=== PATIENT | male | born 1995 | race Two or more races ===

== ENCOUNTER 2017-06-10 21:22 | Emergency (ER) | payer MEDICAID, OTHER ==
[~2017-06-10] VITALS: Ht 162.6 cm; Wt 53.1 kg
[~2017-06-10 21:22] MED LIST: DEPAKOTE250 MG PO; LANTUS SOL100 UNIT/1 SUBQ; NOVOLOG; SYMLIN600 MCG/1 SUBQ; ZOLOFT25 MG ORAL
--- NOTE | 2017-06-10 21:27 | Emergency Room Report ---
History of Present Illness General Chief Complaint: Abnormal Labs Source: Patient Present Illness HPI This is a 21-year-old male who has a history of insulin-dependent diabetes. He is taking NovoLog and Lantus every high-dose. He was doing well today until 56 hours ago when he fell week. Has polyuria and polydipsia. [place] tired. [place] very thirsty. Denies any fever or chills. Has a slight cold. Blood sugar was high at work and he called 911. EMS said blood sugar was over 500. Allergies: Coded Allergies: AMOXICILLIN (Verified Allergy, Unknown, 06/10/17) Patient History Past Medical History: see triage record, old chart reviewed Past Surgical History: other Pertinent Family History: none Social History: Denies: smoking Immunizations: other Reviewed Nursing Documentation: PMH: Agreed, PSxH: Agreed Nursing Documentation-PMH Past Medical History: No History, Except For Hx Diabetes: Yes - DM1 Review of Systems Eye: Denies: eye pain, blurred vision ENT: Denies: ear pain, nose congestion, throat swelling Respiratory: Denies: cough, shortness of breath Cardiovascular: Denies: chest pain, palpitations Gastrointestinal: Denies: abdominal pain, diarrhea, nausea, vomiting Musculoskeletal: Denies: back pain, joint pain Skin: Denies: rash Neurological: Denies: headache, numbness Endocrine: Reports: increased thirst, increased urine Hematologic/Lymphatic: Denies: easy bruising All Other Systems: negative except mentioned in HPI Physical Exam Vital Signs Date Time Temp Pulse Resp B/P (MAP) Pulse Ox O2 Delivery O2 Flow Rate FiO2 06/10/17 21:15 72 16 148/80 98 Room Air vitals normal Sp02 EP Interpretation: reviewed, normal General Appearance: well appearing, no apparent distress, alert, thin Head: normocephalic, atraumatic Eyes: bilateral eye PERRL, bilateral eye EOMI ENT: hearing grossly normal, normal pharynx Neck: full range of motion, supple, no meningismus Respiratory: chest non-tender, lungs clear, normal breath sounds Cardiovascular #1: regular rate, rhythm, no murmur Gastrointestinal: normal bowel sounds, non tender, no mass, no organomegaly, no bruit, non-distended Musculoskeletal: back normal, gait/station normal, normal range of motion Psychiatric: mood/affect normal Skin: warm/dry Medical Decision Making Diagnostic Impression: Primary Impression: Hyperglycemia due to type 1 diabetes mellitus Additional Impression: Dehydration ER Course This patient presents with uncontrolled diabetes. Glucose very elevated. Now down to 400. He show mild acidosis but no evidence of DKA. He is feeling better now. He does not want to stay. Was to go home and take his Lantus. He has long-standing type 1 diabetes and knows how to take care of himself. Lab Results Impression labs show very elevated glucose Last Vital Signs Date Time Temp Pulse Resp B/P (MAP) Pulse Ox O2 Delivery O2 Flow Rate FiO2 06/10/17 21:15 72 16 148/80 98 Room Air Status: improved Disposition: HOME, SELF-CARE Condition: Stable Additional Instructions: Take your insulin week at home. Followup with your Dr. to 3 days for recheck. Check your sugar regularly. Return if worse. LESA NUNEZ M.D. Jun 10, 2017 21:27
[2017-06-10 21:49] LABS: APPEARANCE,URINE CLEAR; EOSINOPHILS % (AUTO) 0.6 % (0.0-3.0); KETONES,URINE 4+ (NEGATIVE); LEUKOCYTE ESTERASE ,URINE NEGATIVE (NEGATIVE); LYMPHOCYTES % (AUTO) 23.6 % (20.0-45.0); MEAN CORPUSCULAR HEMOGLOBIN 27.4 PG (27.0-31.0); MEAN CORPUSCULAR HGB CONC 31.5 G/DL (32.0-36.0); MEAN CORPUSCULAR VOLUME 87 FL (80-99); MONOCYTES % (AUTO) 4.1 % (1.0-10.0); NEUTROPHILS % (AUTO) 70.8 % (45.0-75.0); NITRITE,URINE NEGATIVE (NEGATIVE); PH,URINE 5 (4.5-8.0); PLATELET COUNT 204 K/UL (150-450); PROTEIN,URINE NEGATIVE (NEGATIVE); RED BLOOD COUNT 5.81 M/UL (4.70-6.10); RED CELL DISTRIBUTION WIDTH 11.2 % (11.6-14.8); UROBILINOGEN,URINE NORMAL MG/DL (0.0-1.0); WHITE BLOOD COUNT 9.6 K/UL (4.8-10.8)
[2017-06-10 21:50] VITALS: BP 148/80
[2017-06-10 22:16] LABS: ANION GAP 19 mmol/L (5-15); CALCIUM 9.7 MG/DL (8.5-10.1); CARBON DIOXIDE 20 MMOL/L (21-32); CHLORIDE 91 MMOL/L (98-107); CREATININE 1.4 MG/DL (0.55-1.30); GLOMERULAR FILTRATION RATE > 60 mL/min (>60); POTASSIUM 4.2 MMOL/L (3.5-5.1); SODIUM 130 MMOL/L (136-145)
[2017-06-10 23:11] VITALS: BP 122/68
[2017-06-10 23:14] VITALS: BP 122/68
== END 2017-06-10 23:14 | disposition home or self-care (01) ==
LOC: EDBD 21:22 → EMR 22:35
DX: E10.65 Type 1 diabetes mellitus with hyperglycemia (principal); E86.0 Dehydration; Z79.4 Long term (current) use of insulin; Z88.0 Allergy status to penicillin
CPT/HCPCS: 36415; 80048; 81003; 82962; 85025; 96374; 96375; 99284; J1815; J2405